=== PATIENT | male | born 1995 | race Caucasian/White ===

== ENCOUNTER 2020-08-06 23:15 | Emergency (ER) | payer SELFPAY ==
[~2020-08-06] VITALS: Ht 177.8 cm; Wt 70.3 kg
[2020-08-06 23:24] VITALS: BP_SYST 143
[2020-08-07] MEDS ORDERED: LIDOCAINE/EPI 1% 1:100000 20 ML VIAL INJ ONE (00:34)
[2020-08-07 01:44] VITALS: BP_SYST 135
== END 2020-08-07 01:44 | disposition home or self-care (01) ==
LOC: SED 23:15
DX: S01.01XA Laceration without foreign body of scalp, initial encounter (principal); W18.39XA Other fall on same level, initial encounter; Y93.89 Activity, other specified; Y92.89 Other specified places as the place of occurrence of the external cause; Y99.8 Other external cause status
CPT/HCPCS: 70450-TC; 76376; 99284